=== PATIENT | female | born 1960 | race Caucasian/White ===

== ENCOUNTER 2024-01-18 17:56 | Emergency (ER) | payer MEDICARE, SELFPAY ==
[2024-01-18] MEDS ORDERED: Acetaminophen 500 MG TAB ONE (22:43)
== END 2024-01-18 22:59 | disposition home or self-care (01) ==
LOC: MADERS 17:56
DX: S63.92XA Sprain of unspecified part of left wrist and hand, initial encounter (principal); S09.90XA Unspecified injury of head, initial encounter; S83.92XA Sprain of unspecified site of left knee, initial encounter; F17.290 Nicotine dependence, other tobacco product, uncomplicated; W01.0XXA Fall on same level from slipping, tripping and stumbling without subsequent striking against object, initial encounter
CPT/HCPCS: 70450

== ENCOUNTER 2024-03-01 18:36 | Emergency (ER) | payer MEDICARE ==
[~2024-03-01 18:36] MED LIST: Iopamidol 370 76% 100 ML VIAL ONE
[2024-03-01 19:35] LABS: ALT (SGPT) 19 U/L (8-55); AST (SGOT) 24 U/L (5-34); Albumin 2.6 g/dL (3.4-4.8); Alkaline Phosphatase 110 U/L (40-110); Anion Gap 18 mmol/L (10-20); BUN (Urea Nitrogen) 15 mg/dL (9.8-20.1); Bilirubin, Total 0.3 mg/dL (0.2-1.2); Calc. Creatinine Clearance 0 mL/min (70-130); Calcium 8.8 mg/dL (7.8-10.44); Carbon Dioxide 21 mmol/L (23-31); Chloride 102 mmol/L (98-107); Estimated GFR 83; Globulin 4.3 g/dL (2.4-3.5); Glucose 279 mg/dL (80-115); Potassium 3.8 mmol/L (3.5-5.1); Protein, Total 6.9 g/dL (5.8-8.1); Sodium 137 mmol/L (136-145)
[2024-03-01 19:39] LABS: Hematocrit 45.2 % (36.0-47.0); Hemoglobin 13.9 g/dL (12.0-16.0); Mean Corpuscular HGB CONC 30.7 g/dL (32.0-36.0); Mean Corpuscular Hemoglobin 26.8 pg (27.0-31.0); Mean Corpuscular Volume 87.3 fl (78.0-98.0); Mean Platelet Volume 6.7 fL (7.4-10.4); Platelet Count 263 10x3/uL (130-400); RBC Distribution Width 12.3 % (11.5-14.5); Red Blood Cell (RBC) Count 5.18 mill/uL (4.20-5.40); White Blood Cell (WBC) Count 6.7 10x3/uL (4.8-10.8)
[2024-03-01 20:17] LABS: Band 2 % (5-11); Neutrophil 68 % (42-75)
[2024-03-01 20:18] LABS: Lymphocytes 24 % (21-51); MDiff Complete? YES; Monocytes 6 % (0-10)
[2024-03-01] MEDS ORDERED: Azithromycin 500 MG VIAL ONE (21:37)
[2024-03-01] MEDS ORDERED: Sodium Chloride 0.9% 250 ML 250 ML ONE (21:37)
[2024-03-01] MEDS ORDERED: Sodium Chloride 0.9% 100 ML ONE (21:37)
[2024-03-01] MEDS ORDERED: cefTRIAXone (ROCEPHIN) 1 GM VIAL ONE (21:37)
[2024-03-01] MEDS ORDERED: Acetaminophen 500 MG TAB ONE (22:46)
[2024-03-02 13:50] LABS: SARS-CoV-2 N1 Positive; SARS-CoV-2 N2 Positive; SARS-CoV-2 RNAse P1 Positive
== END 2024-03-01 23:44 | disposition home or self-care (01) ==
LOC: MADERS 18:36
DX: J18.9 Pneumonia, unspecified organism (principal); J01.90 Acute sinusitis, unspecified; E11.9 Type 2 diabetes mellitus without complications; F17.290 Nicotine dependence, other tobacco product, uncomplicated; Z55.6 Problems related to health literacy
CPT/HCPCS: 36415; 71046; 71275; 80053; 85025; 85379; 87635; 87804; 93005; 96365; 96366; 96374; J0456; J0696; J7050; Q9967